=== PATIENT | male | born 1955 | race Caucasian/White ===

== ENCOUNTER 2016-09-11 09:14 | Inpatient (IN) | payer BC, OTHER ==
[~2016-09-11] VITALS: Ht 167.6 cm; Wt 75.7 kg
[2016-09-11] MEDS ORDERED: LOPERAMIDE HCL 2 MG CAPSULE PO PRN ×2 (12:15)
[2016-09-11] MEDS ORDERED: LORAZEPAM 1 MG TABLET PO PRN (12:15)
[2016-09-11] MEDS ORDERED: ONDANSETRON ODT 4 MG TAB.RAPDIS SL PRN (12:15)
[2016-09-11] MEDS ORDERED: ACETAMINOPHEN 325 MG TABLET PO PRN (12:15)
[2016-09-11] MEDS ORDERED: MAG HYDROX/AL HYDROX/SIMETH 30 ML LIQUID UDC PO PRN (12:15)
[2016-09-11] MEDS ORDERED: CLONIDINE HCL 0.1 MG TABLET PO PRN (12:15)
[2016-09-11] MEDS ORDERED: MAGNESIUM HYDROXIDE 30 ML LIQUID UDC PO PRN (12:15)
[2016-09-11] MEDS ORDERED: DICYCLOMINE HCL 20 MG TABLET PO PRN (12:15)
[2016-09-11] MEDS ORDERED: LORAZEPAM 2 MG/1 ML VIAL IM PRN (12:15)
[2016-09-11] MEDS ORDERED: MIRALAX 17 GM POWD.PACK PO PRN (12:15)
[2016-09-11] MEDS ORDERED: THIAMINE HCL 200 MG/2 ML VIAL IM ONE (12:15)
[2016-09-11] MEDS ORDERED: METO-306 PO (12:18)
[2016-09-11 12:30] VITALS: BP 135/93
--- NOTE | 2016-09-11 12:40 | NUR ---
ADMISSION NOTE VS: BP: 135/93 HR: 68 SPO2: 96% TEMP 98.5 PAIN 0/10 HEIGHT: 5'6" WEIGHT 167 LBS ALLERGIES: PENICILLIN PT IS A 61 YO MALE ADMITTED TO [facility] ON 09/11/2016 AT 1230 PM. PT IS UNDER THE CARE OF DR. DURHAM FOR ETOH DEPENDENCE. PT DENIES SUICIDAL AND HOMICIDAL IDEATION AT THIS TIME. PT DENIES BEING HOSPITALIZED IN THE LAST 30 DAYS. PT DENIES CHEST PAIN AND SOB. PT DENIES SEIZURE HISTORY. PT REPORTS OCCASIONALLY SMOKING MARIJUANA ABOUT 1 PIPE LOAD THIS MORNING AROUND 1100. UPON ASSESSMENT PATIENT SKIN IS INTACT. PT REPORTS CIRRHOSIS OF LIVER AND HTN AND IS A POOR HISTORIAN REGARDING HIS MEDIAL HISTORY. PT DOESNT KNOW WHY HE USES INHALERS AND STATES HE DOES NOT HAVE COPD OR ASTHMA. PT IS AOX4 AND ABLE TO ANSWER OTHER QUESTIONS FOR ADMISSION PROCESS. CIWA 6 UPON ADMISSION. PT IS FULL CODE. VS WNL AND REGULAR DIET. PT STATES HIS PCP IS DR. CLAY IN [place], [place]. BREATHING IS EVEN AND UNLABORED, SPO2 IS 96% ON RA. PT HAS STEADY GAIT AND AMBULATES WITH NO DIFFICULTY. PT STATES HIS BOWEL PATTERN IS REGULAR. PT HAS BEEN TO DETOX 22 TIMES WITH LAST TIME 6 MONTHS AGO. PT REPORTS LIVING WITH FAMILY.HX DEPRESSION AND BIPOLAR. PT STATES HE IS WILLING TO GET PNA VACCINE. ALL NEEDS HAVE BEEN MET. PT HAS BEEN ORIENTED TO UNIT AND STAFF. ALL SAFETY MEASURES IN PLACE PER HOSPITAL POLICY. BED IN LOWEST POSITION AND SIDE RAILS UP X2, CALL LIGHT WITHIN REACH. WILL CONTINUE TO MONITOR. SUBSTANCE ABUSE: ETOH-6 MONTHS IN THIS PATTERN WITH 30 YEAR HX. LAST USED 09/11/16 AT 1100. Addendum: 09/11/16 at 1718 by RODY CROWE RN PT STATES HE DRINKS ABOUT 5-10 BEERS DAILY. LAST DRINK 1 BEER THIS AM.
[2016-09-11] MEDS ORDERED: BETA15CR5 TP (12:44)
[2016-09-11] MEDS ORDERED: FEXO-25 PO (12:44)
[2016-09-11] MEDS ORDERED: CHOL10005 PO (12:44)
[2016-09-11] MEDS ORDERED: FURO40TA5 PO (12:44)
[2016-09-11] MEDS ORDERED: TIOT18CA4 IH (12:44)
[2016-09-11] MEDS ORDERED: ALBU8.5H2 INH (12:44)
[2016-09-11] MEDS ORDERED: BUDE10.2 INH (12:44)
[2016-09-11] MEDS ORDERED: xeralto PO (12:44)
[2016-09-11] MEDS ORDERED: MONT10TA25 PO (12:44)
[2016-09-11] MEDS ORDERED: LAMO200T PO (12:44)
[2016-09-11] MEDS ORDERED: HYDR-3024 PO (12:44)
[2016-09-11] MEDS ORDERED: AZEL23SP BNOSTRILS (12:44)
[2016-09-11] MEDS ORDERED: ATOR20TA PO (12:44)
[2016-09-11] MEDS ORDERED: DOXY150T PO (12:44)
[2016-09-11] MEDS ORDERED: NALT50TA PO (12:44)
[2016-09-11] MEDS ORDERED: SPIR50TA3 PO (12:44)
[2016-09-11] MEDS ORDERED: FLUO30CR11 TP (12:44)
[2016-09-11 12:47] LABS: *AMPHETAMINE, URINE NEGATIVE (NEGATIVE); *BARBITURATE, URINE NEGATIVE (NEGATIVE); *CANNABINOID, URINE NEGATIVE (NEGATIVE); *COCCAINE, URINE NEGATIVE (NEGATIVE); *OPIATE, URINE NEGATIVE (NEGATIVE); *PHENCYCLIDINE SCREEN,URINE NEGATIVE (NEGATIVE)
[2016-09-11] MEDS: LORAZEPAM 1 MG TABLET PO PRN ×2 (13:13→21:13)
[2016-09-11] MEDS: FOLIC ACID 1 MG TABLET PO SCH (13:13)
[2016-09-11] MEDS: THIAMINE HCL 100 MG TABLET PO SCH (13:13)
[2016-09-11] MEDS: MULTIVITAMINS,THERAPEUTIC TABLET PO SCH (13:14)
[2016-09-11] MEDS ORDERED: BETAMET DP 0.05% AUGM CR 15 GM CREAM.GM. TP PRN (13:15)
[2016-09-11] MEDS ORDERED: MONTELUKAST SODIUM 10 MG TABLET PO PRN (13:15)
[2016-09-11] MEDS ORDERED: ALBUTEROL SULFATE 8 GM HFA.AER.AD INH PRN (13:15)
--- NOTE | 2016-09-11 13:30 | NUR ---
ATIVAN 1 MG GIVEN. CIWA 6. PT REPORTS ANXIETY AND RESTLESSNESS.
--- NOTE | 2016-09-11 14:15 | NUR ---
PRN MEDS EFFECTIVE PT SLEEPING IN BED WITH BED IN LOWEST POSITION AND CALL PRICE IN REACH. RR EVEN AND UNLABORED. WILL CONTINUE TO MONITOR
[2016-09-11 14:27] LABS: BASOPHILS # (AUTO) 0.1 K/uL (0.0-0.2); BASOPHILS % (AUTO) 1.2 % (0.0-2.0); EOSINOPHILS # (AUTO) 0.2 K/uL (0.0-0.7); HEMATOCRIT 42.9 % (40.0-50.0); HEMOGLOBIN 14.5 g/dL (14.0-18.0); LYMPHOCYTES # (AUTO) 1.4 K/uL (0.8-4.8); LYMPHOCYTES % (AUTO) 21.5 % (20.5-51.5); MEAN CORPUSCULAR HGB CONC 34 g/dL (32.0-37.0); MEAN CORPUSCULAR VOLUME 97.6 fL (82.0-92.0); MONOCYTES # (AUTO) 0.6 K/uL (0.1-1.30); MONOCYTES % (AUTO) 8.8 % (0.0-11.0); NEUTROPHILS # (AUTO) 4.1 K/uL (1.8-8.9); NEUTROPHILS % (AUTO) 65.5 % (38.5-71.5); PLATELET COUNT (AUTO) 166 K/uL (150-450); RED BLOOD CELL COUNT(AUTO) 4.39 MIL/uL (4.70-6.10); RED CELL DISTRIBUTION WIDTH 15.2 % (11.5-14.5); WHITE BLOOD COUNT (AUTO) 6.4 K/uL (4.0-11.2)
[2016-09-11 14:41] LABS: ALBUMIN 2.7 g/dL (3.4-5.0); BILIRUBIN,TOTAL 0.6 mg/dL (0.2-1.0); CALCIUM 8.3 mg/dL (8.5-10.1); MAGNESIUM 1.4 mg/dL (1.8-2.4); POTASSIUM 3.9 mmol/L (3.5-5.1); TOTAL PROTEIN, SERUM 6.1 g/dL (6.4-8.2)
[2016-09-11 14:54] LABS: HIV-1 p24 ANTIGEN NON REACTIVE (NONREACTIVE); HIV-1/2 ANTIBODY NON REACTIVE (NONREACTIVE); THYROID STIMULATING HORMONE 0.917 mIU/mL (0.358-3.740)
[2016-09-11 16:00] VITALS: BP 111/81
[2016-09-11] MEDS ORDERED: FEXOFENADINE HCL 180 MG TABLET PO PRN (16:30)
[2016-09-11] MEDS ORDERED: ALBUTEROL SULFATE 2.5 MG/3 ML NEBU NEB PRN (16:45)
[2016-09-11] MEDS ORDERED: IPRATROPIUM BROMIDE 0.5 MG/2.5 ML NEBU NEB PRN (16:45)
--- NOTE | 2016-09-11 16:55 | NUR ---
CIWA DEFERRED. PT SLEEPING WITH BED IN LOWEST POSITION. CALL PRICE IN REACH. RESPIRATIONS EVEN AND UNLABORED.WILL CONTINUE MONITORING
[2016-09-11] MEDS ORDERED: PATIENT MAY USE OWN MED- MD OK INH SCH (17:00)
[2016-09-11] MEDS: GABAPENTIN 300 MG CAPSULE PO SCH (18:10)
[2016-09-11] MEDS: RIVAROXABAN 10 MG TABLET PO SCH (18:10)
[2016-09-11] MEDS: METOPROLOL TARTRATE 50 MG TABLET PO SCH (18:10)
[2016-09-11] MEDS ORDERED: MAGNESIUM OXIDE 400 MG TABLET PO ONE (18:30)
--- NOTE | 2016-09-11 18:44 | NUR ---
END OF SHIFT PT ADMITTED THIS AFTERNOON. PT HAD EKG DONE TODAY THAT SHOWED AFIB WITH RVR. PT WAS ASYMPTOMATIC. TELEPHONE ORDER FROM DR. SMITH FOR METOPROLOL TARTRATE 50 MG Q6H. PT BEEN IN BED SINCE PRN 1 MG ATIVAN GIVEN FOR RESTLESSNESS ANXIETY R/T ETOH W/D AND CIWA 6. ONE TIME ORDER OF 800MG MAG ORDERED AND GIVEN FOR HYPOMAGNESIUM. ENCOURAGED INCREASED FLUIDS. LAST CIWA 3.PT STILL SLEEPING WITH BED LOCKED AND IN LOWEST POSITION. CALL PRICE IN REACH. RR EVEN AND UNLABORED. WILL ENDORSE TO MACHINIST/MACHINE BUILDER NURSE.
--- NOTE | 2016-09-11 19:50 | NUR ---
START OF SHIFT Received report from day shift nurse. Pt is lying in bed resting. He is a 61 yo male admitted to [facility] today for ETOH dependence. He is A&O x4 and ambulatory. Allergies to PCN's, full code status, and on a 2 gm sodium diet. He has a PMH of HTN, cirrhosis, a-fib, depression, and bipolar. SCD's ordered for VTE score of 2. On admission he admitted to drinking 5-10 beers/day for the past 6 months. He is ordered a 5 day Ativan taper to start tomorrow. PRN's available for the management of withdrawal symptoms. He has sweating and hand tremors. He denies dizziness or SOB. Pt educated regarding use of the SCD's. PRN's available for the management of withdrawal. Fall and seizure precautions in place. Bed is down with call light in reach.
[2016-09-11 20:00] VITALS: BP 100/67
[2016-09-11] MEDS: ATORVASTATIN 20 MG TABLET PO SCH (21:13)
[2016-09-11] MEDS: CHOLECALCIFEROL 1,000 UNIT TABLET PO SCH (21:13)
[2016-09-11] MEDS: hydrOXYzine HCL 10 MG TABLET PO SCH (21:13)
--- NOTE | 2016-09-11 21:15 | NUR ---
PRN Ativan administration Pt is noted to be sweating and with hand tremors. He reports that he "feels uneasy". CIWA score 7. PRN Ativan administered
--- NOTE | 2016-09-11 22:15 | NUR ---
PRN Ativan reassessment PRN Ativan effective. Pt is lying comfortably in bed with eyes closed. Respirations even and unlabored. Bed is down with call light in reach.
[2016-09-12] VITALS: BP 116/96
[2016-09-12] MEDS: METOPROLOL TARTRATE 50 MG TABLET PO SCH ×4 (00:24→17:06)
[2016-09-12 04:00] VITALS: BP 125/92
--- NOTE | 2016-09-12 04:05 | NUR ---
Nursing Note Patient yelled out from his room and upon checking on the patient he was walking out of his restroom. He reported that he slipped on liquid on the bathroom floor. He states that he scraped his right arm against the bathroom emergency call light and that he did not fall to the ground. He denies dizziness or SOB. He obtained two bruises on the right upper arm with a small abrasion in the middle of one bruise. Pt states, "I'm fine". He is A&O x4. He denies pain or any other injuries. Cleansed site with normal saline, pat dry, and covered with a large band aid. Ensured patient's environment is safe. Addendum: 09/12/16 at 0745 by MANJIT CAMARA RN Photo of right arm taken and placed in chart.
[2016-09-12] MEDS: LORAZEPAM 1 MG TABLET PO PRN (04:08)
--- NOTE | 2016-09-12 04:09 | NUR ---
PRN Ativan administration Pt reports that he feels restless and anxious. He is noted with flushed moist skin and tremors. CIWA score is 6. PRN Ativan administered.
--- NOTE | 2016-09-12 07:25 | NUR ---
END OF SHIFT Report provided to day shift nurse. Pt is lying in bed resting. He is a 61 yo male admitted to [facility] today for ETOH dependence. He is A&O x4 and ambulatory. Allergies to PCN's, full code status, and on a 2 gm sodium diet. He has a PMH of HTN, cirrhosis, a-fib, depression, and bipolar. SCD's ordered for VTE score of 2. ECG performed yesterday. On admission he admitted to drinking 5-10 beers/day for the past 6 months. Ativan taper is scheduled to start today. PRN Ativan x2 administered. Pt slipped in the bathroom and scraped his right arm against the call light. Bruising and small abrasion was covered with a band aid. Last CIWA was 6. He drank 540 mL and slept for 8 hours. Fall and seizure precautions in place. Bed is down with call light in reach.
--- NOTE | 2016-09-12 07:30 | NUR ---
START OF SHIFT Received report from third shift lieutenant nurse. 61 year old male patient admitted on 09/11/16 for ETOH withdrawals. Pt reports drinking 5-10 beers daily for the past 6 months. Pt is A/O x4, allergies to PCN and follows a 2g sodium diet. Hx pf depression, HTN, bipolar, cirrhosis, and A.fib. Pt is on fall and seizure precautions. Pt has been placed on a 5 day Ativan taper and is tolerating well. Most recent CIWA is 6, PRN 1mg Ativan administered at night x2. SCD are in room, pt education provided. During night pt reports slipping, denies falling, pt noted to have scrape and bruising noted on right upper arm, photos taken and in chart. Pt slept for 8 hour. V/S remain WNL. Safety precautions are in place, will continue to monitor.
[2016-09-12 08:16] VITALS: BP 120/88
[2016-09-12] MEDS: LORAZEPAM 1 MG TABLET PO SCH ×4 (08:18→20:54)
[2016-09-12] MEDS: FOLIC ACID 1 MG TABLET PO SCH (08:19)
[2016-09-12] MEDS: LAMOTRIGINE 200 MG TABLET PO SCH (08:19)
[2016-09-12] MEDS: DOCUSATE SODIUM 250 MG CAPSULE PO SCH (08:19)
[2016-09-12] MEDS: SPIRONOLACTONE 50 MG TABLET PO SCH (08:19)
[2016-09-12] MEDS: MULTIVITAMINS,THERAPEUTIC TABLET PO SCH (08:19)
[2016-09-12] MEDS: THIAMINE HCL 100 MG TABLET PO SCH (08:19)
[2016-09-12] MEDS: GABAPENTIN 300 MG CAPSULE PO SCH ×2 (08:19→17:01)
[2016-09-12] MEDS: FUROSEMIDE 40 MG TABLET PO SCH (08:19)
--- NOTE | 2016-09-12 08:20 | NUR ---
PPD ADMINISTERED TB administered on LFA, to be read on 09/14/16.
[2016-09-12] MEDS ORDERED: PATIENT MAY USE OWN MED- MD OK NS SCH (09:00)
[2016-09-12] MEDS ORDERED: PATIENT MAY USE OWN MED- MD OK PO SCH ×2 (09:00)
[2016-09-12] MEDS ORDERED: hydrOXYzine HCL 10 MG TABLET PO SCH (09:00)
[2016-09-12] MEDS ORDERED: 5 DAY TAPER OF LORAZEPAM -SERENITY PROTOCOL PO PRN (09:00)
[2016-09-12] MEDS ORDERED: PATIENT MAY USE OWN MED- MD OK INH SCH (09:00)
[2016-09-12] MEDS ORDERED: METOPROLOL SUCCINATE XL 100 MG TAB.SR.24H PO SCH (09:00)
[2016-09-12] MEDS ORDERED: FEXOFENADINE HCL 60 MG TABLET PO SCH (09:00)
[2016-09-12] MEDS ORDERED: TUBERCULIN,PURIF.PROT.DERIV. 5 TU/0.1 ML TEST ID ONE (09:00)
[2016-09-12 09:54] LABS: CALCIUM 8.5 mg/dL (8.5-10.1); CREATININE 1.1 mg/dL (0.6-1.3); MAGNESIUM 1.6 mg/dL (1.8-2.4); POTASSIUM 4.2 mmol/L (3.5-5.1)
[2016-09-12 12:45] VITALS: BP 127/91
[2016-09-12 16:58] VITALS: BP 130/85
[2016-09-12] MEDS: RIVAROXABAN 10 MG TABLET PO SCH (17:05)
--- NOTE | 2016-09-12 18:42 | NUR ---
END OF SHIFT NOTE 61 year old male patient admitted on 09/11/16 for ETOH withdrawals. Pt is A/O x4, allergies to PCN and follows a 2g sodium diet. Hx Of depression, HTN, bipolar, cirrhosis, and A.fib. Denies any chest pain, palpitations or discomfort. Pending echocardiogram ordered. Pt is on fall and seizure precautions. Pt on 5 day Ativan taper and is tolerating well. Most recent CIWA is 6, no PRN given or needed. TB skin test administered to be read on 09/14/16. notified about patient slipping on facility environmental technician and pt noted with scrape and bruising on right upper arm, photos taken and in chart. Patient has adequate caloric intake and ambulates with steady gait. V/S remain WNL. Safety precautions are in place. cigarette tester nurse will continue to monitor.
--- NOTE | 2016-09-12 19:50 | NUR ---
START OF SHIFT Received report from day shift nurse. Pt is lying in bed resting. He is a 61 yo male admitted to [facility] today for ETOH dependence. He is A&O x4 and ambulatory. Allergies to PCN's, full code status, and on a 2 gm sodium diet. He has a PMH of HTN, cirrhosis, a-fib, depression, and bipolar. SCD's ordered for VTE score of 2. He has an Echocardiogram ordered. On admission he admitted to drinking 5-10 beers/day for the past 6 months. 5 day Ativan taper started today. He reports anxiety and is noted with flushing. Ativan is working well to manage withdrawal symptoms. Fall and seizure precautions in place. Bed is down with call light in reach.
[2016-09-12 20:00] VITALS: BP 130/95
[2016-09-12] MEDS ORDERED: MAGNESIUM OXIDE 400 MG TABLET PO ONE (20:00)
[2016-09-12] MEDS: hydrOXYzine HCL 10 MG TABLET PO SCH (20:53)
[2016-09-12] MEDS: ATORVASTATIN 20 MG TABLET PO SCH (20:54)
[2016-09-12] MEDS: CHOLECALCIFEROL 1,000 UNIT TABLET PO SCH (20:54)
[2016-09-13] VITALS: BP 122/74
--- NOTE | 2016-09-13 00:37 | NUR ---
Nursing Note Patient walked out of his room fully dressed with his clothes in a bag. He stated "I'm ready to go". When patient was asked where he is going he reported that he thought someone he knew was picking him up. Pt was easily redirected back to his room where he got back into bed. He reported, "maybe I had a dream". Ensured patients surroundings are safe. Bed is down with call light in reach.
[2016-09-13] MEDS: METOPROLOL TARTRATE 50 MG TABLET PO SCH ×5 (00:42→23:51)
[2016-09-13] MEDS: diphenhydrAMINE 50 MG CAPSULE PO PRN ×2 (00:43→23:59)
--- NOTE | 2016-09-13 00:44 | NUR ---
PRN Benadryl administration Pt reports inability to sleep. PRN Benadryl administered.
--- NOTE | 2016-09-13 01:45 | NUR ---
PRN Benadryl reassessment PRN Benadryl effective. Pt is lying in bed resting with eyes closed. Respirations even and unlabored. Bed is down with call light in reach.
[2016-09-13 06:30] VITALS: BP 122/83
--- NOTE | 2016-09-13 06:30 | NUR ---
1:1 ordered Pt placed on a 1:1 for unsteady gait and for confusion upon waking up. Patient is easily redirected and cooperative.
--- NOTE | 2016-09-13 07:05 | NUR ---
Start of Shift Endorsement received from nightshift nurse. Pt is a 61 y/o male admitted for alcohol dependence. Pt has been placed on a 5 day Ativan taper. Pt is moderately withdrawing at this time AEB CIWA 6. Pt received PRN Benadryl and reports sleeping 6 hours. PT has been placed on 1:1 due to unsteady gate until farther evaluation. VS WNL, 2g Sodium diet. PT appears to be sleeping at this time, eyes closed, breathing even and unlabored, responsive to name and touch. Remains compliant with medication and diet regimen. All needs have been met, All safety measures in place per hospital policy. Bed in lowest position, side rails up x2, call-light within reach. Will continue to monitor
--- NOTE | 2016-09-13 07:25 | NUR ---
END OF SHIFT Report provided to day shift nurse. Pt is lying in bed resting. He is a 61 yo male admitted to [facility] on 09/11/16 for ETOH dependence. He is A&O x4 and ambulatory. Allergies to PCN's, full code status, and on a 2 gm sodium diet. He has a PMH of HTN, cirrhosis, a-fib, depression, and bipolar. SCD's in place for VTE score of 2. He has an Echocardiogram ordered. On admission he admitted to drinking 5-10 beers/day for the past 6 months. 5 day Ativan taper started 09/12. He has a pending Ecohcardiogram. He has bruising to the right upper arm. Mg supplemented per orders. PRN Benadryl administered for sleep. Last CIWA was 6. He drank 710mL and slept for 5 hours. Pt placed on a 1:1 for unsteady gait and mild confusion upon waking up for midnight vitals. He is easily redirected. Fall and seizure precautions in place. Bed is down with call light in reach.
[2016-09-13 08:00] VITALS: BP_SYST 128; BP_SYST 129; BP_SYST 130; BP_DIAS 84; BP_DIAS 86; BP_DIAS 89
[2016-09-13 08:06] LABS: CALCIUM 8.6 mg/dL (8.5-10.1); CREATININE 1.2 mg/dL (0.6-1.3); MAGNESIUM 1.3 mg/dL (1.8-2.4)
[2016-09-13] MEDS ORDERED: PNEUMOCOCCAL 23-VAL P-SAC VAC 0.5 ML VIAL IM ONE (09:00)
[2016-09-13] MEDS: FUROSEMIDE 40 MG TABLET PO SCH (09:36)
[2016-09-13] MEDS: FOLIC ACID 1 MG TABLET PO SCH (09:36)
[2016-09-13] MEDS: LAMOTRIGINE 200 MG TABLET PO SCH (09:36)
[2016-09-13] MEDS: GABAPENTIN 300 MG CAPSULE PO SCH ×2 (09:36→17:27)
[2016-09-13] MEDS: MULTIVITAMINS,THERAPEUTIC TABLET PO SCH (09:36)
[2016-09-13] MEDS: SPIRONOLACTONE 50 MG TABLET PO SCH (09:36)
[2016-09-13] MEDS: LORAZEPAM 1 MG TABLET PO SCH ×3 (09:36→20:26)
[2016-09-13] MEDS: THIAMINE HCL 100 MG TABLET PO SCH (09:36)
[2016-09-13] MEDS: DOCUSATE SODIUM 250 MG CAPSULE PO SCH (09:36)
[2016-09-13 12:00] VITALS: BP 128/86
[2016-09-13 12:08] LABS: HCV AB 0.2 s/co ratio (0.0-0.9); HEPATITIS B CORE AB, IgM Negative (Negative); HEPATITIS B SURFACE AG Negative (Negative)
[2016-09-13] MEDS ORDERED: MAGNESIUM OXIDE 400 MG TABLET PO ONE ×3 (13:00→21:00)
[2016-09-13 16:00] VITALS: BP 136/89
[2016-09-13] MEDS ORDERED: LORAZEPAM 1 MG TABLET PO ONE (17:00)
[2016-09-13] MEDS: RIVAROXABAN 10 MG TABLET PO SCH (17:28)
[2016-09-13 18:24] LABS: CALCIUM 8.6 mg/dL (8.5-10.1); CREATININE 1.3 mg/dL (0.6-1.3); MAGNESIUM 1.4 mg/dL (1.8-2.4); POTASSIUM 4.1 mmol/L (3.5-5.1)
--- NOTE | 2016-09-13 19:37 | NUR ---
End of shift Endorsement given to nightshift nurse. Pt is a 61 y/o male admitted for alcohol dependence. Pt has been placed on a 5 day Ativan taper. Pt is moderately withdrawing at this time AEB CIWA 11. Pt has not received any PRN medications. PT has been placed on 1:1 due to unsteady gate and auditory and visual hallucinations.. VS WNL, 2g Sodium diet. intake: 2500ml, Void x5, BM x2. Remains compliant with medication and diet regimen. All needs have been met, All safety measures in place per hospital policy. Bed in lowest position, side rails up x2, call-light within reach. Will continue to monitor
[2016-09-13 20:00] VITALS: BP 123/84
--- NOTE | 2016-09-13 20:00 | NUR ---
2000 Patient received resting with eyes closed and quiet, even, unlabored respirations noted at 16. Patient color is caraballo-pink and his skin is warm, slightly moist and intact. Patient aroused for nurse assess and vital signs. Patient is oriented to person, place and his situation. Patient reoriented to day, date and time. Patient's speech is somewhat drowsy and a bit garbled in clarity, however he does answer nurse's assess questions appropriately for the most part, while giving fairly good eye contact. Lungs are clear bilaterally and active bowel sounds are noted x 4 abdominal Quads, per auscultation. Patient denies any pain and he voices no complaints at this time. Vital signs are: 97.7-77-16 123/84, CIWA 7. Patient moves all his extremities fully WNL, though a bit stiffly and slowly. Leg venous pump on bed but pump/leg sleeves not in use on patient's legs per patient's strong choice at this time. 1 to 1 [facility] staff at patient's bedside for patient safety. Patient was admitted on 09/11/16 for Alcohol withdrawal and he is currently on a 5-Day Ativan medication taper, which he has apparently been tolerating well. Fall/Seizure precautions continue. Bed is locked and in lowest position, bed rails are up X 2 and call light at patient's side.
[2016-09-13] MEDS: hydrOXYzine HCL 10 MG TABLET PO SCH (20:25)
[2016-09-13] MEDS: ATORVASTATIN 20 MG TABLET PO SCH (20:26)
[2016-09-13] MEDS: CHOLECALCIFEROL 1,000 UNIT TABLET PO SCH (20:26)
[2016-09-13] MEDS ORDERED: LACTULOSE 20 G/30 ML LIQUID UDC PO ONE (21:00)
--- NOTE | 2016-09-13 23:59 | NUR ---
PRN MEDICATION: Prn Benadryl 50 mg p.o. given for sleep. Patient will now be NPO in prep for U/S of abdomen in AM per D.O.
[2016-09-14] VITALS: BP 122/88
[2016-09-14] MEDS: HYDROXYZINE PAMOATE 25 MG CAPSULE PO PRN ×2 (02:13→11:53)
--- NOTE | 2016-09-14 02:13 | NUR ---
Patient is awake, confused, partially dressed and standing up slightly wobbly at his bedside, stating somewhat loudly " I'm going home on the motorcycle. This place is like prison with entertainment". Patient oriented to person, place and his situation. Patient reoriented to day, date, time and his immediate surroundings, then he was redirected and assisted back into his bed. Patient c/o " anxiety" and asks nurse, " Can I have something for that?" Prn Vistaril 50 mg p.o. given with sips water. Patient states, " Okay, they said I could leave in the morning". 1 to 1 [facility] staff continues at patient's bedside. Bed rails are up X 2. Patient made comfortable with extra blanket, robe and repositioning.
--- NOTE | 2016-09-14 03:13 | NUR ---
REASSESSMENT PRN MEDICATION: Patient is quiet with eyes closed. Respirations even, quiet, unlabored at 14.
--- NOTE | 2016-09-14 04:00 | NUR ---
Patient is loud, confused and anxious at this time, and he refused V/S to be done. CIWA 9
[2016-09-14] MEDS ORDERED: LORAZEPAM 1 MG TABLET PO ONE (04:45)
--- NOTE | 2016-09-14 04:45 | NUR ---
Pt Assessment and MD Communication: Pt noted with increased agitation and anxiety. Pt was verbally aggressive with primary nurse. Pt AOx2, pt able to state own name and current date but unable to identify place. Pt remains on 1:1 for unsteady gait and safety. Pt stated that "he is in a little room in a restaurant". Pt observed with increased restlessness due to wanting to leave facility. Reminded pt that he is in the hospital for detox. Pt started talking about his current situation. Allowed pt to verbalize own feelings. Support and encouragement given. Pt stated he just wanted to calm down and go to sleep. MD made aware of situation with new order for 2mg Ativan PO ONE TIME NOW. At the time of medication administration, pt was assessed and noted to be sleeping. 2mg Ativan PO ONE TIME not given. MD made aware.
[2016-09-14] MEDS ORDERED: LORAZEPAM 1 MG TABLET ONE (04:47)
--- NOTE | 2016-09-14 06:30 | NUR ---
0630 Patient slept a total of 4 hours and he had 5 total voids ( continent and incontinent), and no stools. Total intake before midnight was 532 ml p.o. Prn medications given noted separately per floor protocol. V/SS, afebrile, CIWA 7-9. Patient is overall confused and having visual hallucinations most of the shift, though he does have a few episodes of mental and spoken clarity. Efforts to redirect or reorientate patient, frequently escalates patient's negative behavior, causing patient is shout obscenities and act out. Patient is presently resting with his eyes closed and respirations regular and unlabored at 14. 1 to 1 staff continues at bedside.
--- NOTE | 2016-09-14 07:35 | NUR ---
START OF SHIFT Received report from delphi programmer nurse. Pt is lying in bed resting. He is a 61 yo male admitted to [facility] on 09/11 for ETOH dependence. Allergic to PCN, is on a 2 gram sodium diet and is full code status. He has episodes of confusion and an unsteady gait. 1:[address] for safety. He has a PMH of A-fib, HTN, Chrrhosis, deression, and bipolar. On admission he admitted to drinking 5-10 beers per day. Pt is ordered a 5 day Ativan taper. He is relaxed in bed, easily arousable, and oriented x3. Respirations even and unlabored. Fall and seizure precautions in place. Bed is down with call light in reach.
[2016-09-14 08:00] VITALS: BP 130/89
[2016-09-14] MEDS: FOLIC ACID 1 MG TABLET PO SCH (08:46)
[2016-09-14] MEDS: SPIRONOLACTONE 50 MG TABLET PO SCH (08:46)
[2016-09-14] MEDS: FUROSEMIDE 40 MG TABLET PO SCH (08:46)
[2016-09-14] MEDS: DOCUSATE SODIUM 250 MG CAPSULE PO SCH (08:46)
[2016-09-14] MEDS: LORAZEPAM 1 MG TABLET PO SCH ×4 (08:46→21:06)
[2016-09-14] MEDS: LAMOTRIGINE 200 MG TABLET PO SCH (08:46)
[2016-09-14] MEDS: THIAMINE HCL 100 MG TABLET PO SCH (08:47)
[2016-09-14] MEDS: MULTIVITAMINS,THERAPEUTIC TABLET PO SCH (08:47)
[2016-09-14] MEDS: GABAPENTIN 300 MG CAPSULE PO SCH ×2 (08:47→16:24)
[2016-09-14] MEDS: METOPROLOL TARTRATE 50 MG TABLET PO SCH ×2 (08:47→16:24)
[2016-09-14 09:53] LABS: FOLIC ACID 18.9 NG/ML (8.6-58.9)
[2016-09-14 10:01] LABS: ALBUMIN 2.5 g/dL (3.4-5.0); BILIRUBIN,DIRECT 0.2 mg/dL (0.0-0.2); BILIRUBIN,TOTAL 0.9 mg/dL (0.2-1.0); CREATININE 1.1 mg/dL (0.6-1.3); MAGNESIUM 1.4 mg/dL (1.8-2.4); PHOSPHOROUS 4.2 mg/dL (2.5-4.9); POTASSIUM 4.3 mmol/L (3.5-5.1); TOTAL PROTEIN, SERUM 5.7 g/dL (6.4-8.2)
--- NOTE | 2016-09-14 11:58 | NUR ---
PRN Vistaril administration Pt is anxious and becoming agitated. He is verbalizing that his friends are here to pick him up when they are not. Redirected patient. 1:[address] for safety[address] PRN Vistaril administered. Addendum: 09/14/16 at 1201 by MANJIT CAMARA RN HYACINTHWA score is 7
[2016-09-14 12:00] VITALS: BP 122/90
[2016-09-14] MEDS ORDERED: LACTULOSE 20 G/30 ML LIQUID UDC PO ONE (13:00)
[2016-09-14] MEDS ORDERED: MAGNESIUM OXIDE 400 MG TABLET PO ONE ×2 (13:00→21:00)
--- NOTE | 2016-09-14 13:00 | NUR ---
PRN Vistaril reassessment PRN Vistaril effective. Pt is lying in bed resting with eyes closed. 1:[address] for safety.
[2016-09-14 16:00] VITALS: BP 141/92
--- NOTE | 2016-09-14 17:30 | NUR ---
Communication Pt walked out of his room with BHT by his side at 1600. He was becoming agitated and speaking about his truck. He is noted with slurred speech. Attempted to redirect patient. He requested to make a phone call and agitation increased. He began walking down the [address]. He stopped, turned quickly, and lost his balance. BHT assisted the patient to the floor. No injuries sustained. Pt denied pain. Vital signs 141/92, HR 84, RR 20, O2 sat 96%, T 98.0. He was taken to make a phone call and was unable to recall the phone number of the person he was trying to reach. Pt returned to his room to lie in bed.
[2016-09-14] MEDS: RIVAROXABAN 10 MG TABLET PO SCH (18:19)
[2016-09-14 20:00] VITALS: BP 109/75
--- NOTE | 2016-09-14 20:00 | NUR ---
START OF SHIFT Received 61 year old male patient admitted on 09/11/16 for ETOH dependency. Pt is full code with allergy to PCN and on 2 gram sodium diet. He reports a PMHx of depression, hypertension, bipolar, cirrhosis and AFIB. He reports using ETOH (5-10 beers) daily for 6 months at this rate but 30 year history. Last dose was 1 beer on 09/11/16. He is on 5 day Ativan tapert started on 09/12/16 and tolerating well. Pt is on 1:1 for safety. Per endorsement, he received PRN vistaril. Pt is alert and oriented x3, but experiences moments of confusion, he is able to be redirected. Breathing is even and unlabored, safety measures in place. Will continue to monitor.
--- NOTE | 2016-09-14 20:20 | NUR ---
END OF SHIFT Received report from clinical informatics director nurse. Pt is lying in bed resting. He is a 61 yo male admitted to [facility] on 09/11 for ETOH dependence. Allergic to PCN, is on a 2 gram sodium diet and is full code status. He has episodes of confusion and an unsteady gait. 1:[address] for safety. He has a PMH of A-fib, HTN, Cirrhosis, depression, and bipolar. On admission he admitted to drinking 5-10 beers per day. Pt is ordered a 5 day Ativan taper. Pt has had periods of confusion and agitation during the day. Pt was assisted to the ground during the day after turning too fast and losing his balance in the hallway. No injuries sustained. MD aware. Last CIWA was 9. Fall and seizure precautions in place. Bed is down with call light in reach.
[2016-09-14] MEDS: ATORVASTATIN 20 MG TABLET PO SCH (21:06)
[2016-09-14] MEDS: CHOLECALCIFEROL 1,000 UNIT TABLET PO SCH (21:06)
[2016-09-14] MEDS: LACTULOSE 20 G/30 ML LIQUID UDC PO SCH (21:07)
[2016-09-14] MEDS: hydrOXYzine HCL 10 MG TABLET PO SCH (21:07)
[2016-09-14] MEDS: QUETIAPINE FUMARATE 25 MG TABLET PO PRN (23:29)
--- NOTE | 2016-09-14 23:29 | NUR ---
PRN SEROQUEL Pt noted to be agitated, restless and aggressive to staff. PRN Seroquel administered as ordered. Breathing even and unlabored, safety measures in place. Will continue to monitor effectiveness of medication.
--- NOTE | 2016-09-15 | NUR ---
VITALS Pt noted to be agitated, restless and confused. Pt refused 0000 vital signs. Breathing is even and unlabored, safety measures in place. Will continue to monitor. Addendum: 09/15/16 at 0208 by LINDA BOURGEOIS RN Amended: Links added.
--- NOTE | 2016-09-15 00:30 | NUR ---
PRN SEROQUEL REASSESSMENT PRN medication effective. No restlessness or agitation noted. Pt noted to be sleeping comfortably in bed with eyes closed. Respirations 16, breathing is even and unlabored. Pt safe with bed locked in lowest position, side rails up x2 and call light within reach. Will continue to monitor.
[2016-09-15] MEDS: HYDROXYZINE PAMOATE 25 MG CAPSULE PO PRN ×2 (03:51→22:35)
--- NOTE | 2016-09-15 03:51 | NUR ---
PRN TYLENOL/VISTARIL Pt complains of headache 3/10 and backache 5/10. Pt also reports anxiety. Noted to be restless in bed. PRN Tylenol and Vistaril administered as ordered. Breathing is even and unlabored, safety measures in place. Will continue to monitor effectiveness.
[2016-09-15 04:00] VITALS: BP 126/94
--- NOTE | 2016-09-15 04:51 | NUR ---
PRN TYLENOL/VISTARIL REASSESSMENT PRN medications effective. Pt lying in bed with no evidence of pain or anxiety noted. Pt eyes are closed and noted to be asleep. Respirations 16. Breathing is even and unlabored, safety measures in place. Will continue to monitor.
--- NOTE | 2016-09-15 07:13 | NUR ---
END OF SHIFT Pt remained stable during shift. Pt had episode of agitation, confusion, restlessness and aggression. He received PRN Seroquel, Tylenol and Vistaril. All PRN medications effective. Last CIWA: 5 @ 0400. He remains on 1:1 for safety. He slept a total of 4 hrs, Intake: 710mL Void:x2 BM:0 Breathing is even and unlabored, pt safe with bed locked in lowest position, side rails up x2 and call light within reach. Endorsed to oncoming nurse.
[2016-09-15 08:00] VITALS: BP 116/84
--- NOTE | 2016-09-15 08:00 | NUR ---
START OF SHIFT Pt 61 y/o male admitted for etoh dependence. Pt received in room with eyes closed resting, but easily arousable to name. Pt alert and oriented to name. Pt could not stated where he is. Pt observed rambling to self. Pt also observed repeatedly getting up and sitting down. Pt needed some redirection. Perrla. Skin warm and dry to touch. Respirations even and unlabored. Pt with sitter 1:1 for safety. It was reported that pt slept for 4 hours last night. Bed on lowest position with side rails x2 up for safety. Call light within reach. No distress noted at this time.
[2016-09-15 08:19] LABS: CALCIUM 8.7 mg/dL (8.5-10.1); MAGNESIUM 1.9 mg/dL (1.8-2.4); PHOSPHOROUS 4.8 mg/dL (2.5-4.9)
[2016-09-15 08:29] LABS: CREATININE 1.6 mg/dL (0.6-1.3)
[2016-09-15] MEDS ORDERED: FUROSEMIDE 40 MG TABLET PO SCH (09:00)
[2016-09-15] MEDS ORDERED: FUROSEMIDE 20 MG TABLET PO SCH (09:00)
[2016-09-15] MEDS: LAMOTRIGINE 200 MG TABLET PO SCH (09:43)
[2016-09-15] MEDS: SPIRONOLACTONE 50 MG TABLET PO SCH (09:44)
[2016-09-15] MEDS: METOPROLOL TARTRATE 50 MG TABLET PO SCH ×2 (09:44→17:00)
[2016-09-15] MEDS: QUETIAPINE FUMARATE 25 MG TABLET PO PRN ×2 (09:44→18:05)
[2016-09-15] MEDS: GABAPENTIN 300 MG CAPSULE PO SCH ×2 (09:44→17:00)
[2016-09-15] MEDS: FOLIC ACID 1 MG TABLET PO SCH (09:44)
[2016-09-15] MEDS: MULTIVITAMINS,THERAPEUTIC TABLET PO SCH (09:44)
[2016-09-15] MEDS: LORAZEPAM 1 MG TABLET PO SCH ×3 (09:44→20:34)
[2016-09-15] MEDS: LACTULOSE 20 G/30 ML LIQUID UDC PO SCH ×3 (09:44→20:33)
[2016-09-15] MEDS: DOCUSATE SODIUM 250 MG CAPSULE PO SCH (09:44)
--- NOTE | 2016-09-15 09:44 | NUR ---
PRN Pt observed rambling and talking to self in room. Pt oriented to name only. Pt stated he thinks he has appointment with a j2ee application developer this morning. Seroquel po prn per MD order given and tolerated well. Sitter remains with pt to monitor for safety.
[2016-09-15] MEDS ORDERED: IV NORMAL SALINE 500 ML IV ONE (10:00)
[2016-09-15] MEDS: THIAMINE HCL 100 MG TABLET PO SCH (10:02)
--- NOTE | 2016-09-15 10:44 | NUR ---
PRN EVAL Pt observed in room on bed with eyes closed resting, but easily arousable to name. Pt with sitter to monitor safety. No distress noted at this time.
--- NOTE | 2016-09-15 11:00 | NUR ---
IV Peripheral IV started on left hand 22g and tolerated well, and is infusing NS bolus, and is tolerating well, with no redness or infiltration noted.
[2016-09-15 12:00] VITALS: BP 100/73
[2016-09-15 16:00] VITALS: BP 88/57
[2016-09-15 18:00] VITALS: BP 102/65
[2016-09-15] MEDS: RIVAROXABAN 10 MG TABLET PO SCH (18:06)
--- NOTE | 2016-09-15 18:17 | NUR ---
PRN Pt with agitated episode, stating," my bike is right outside damnit. Get out of my way damnit! Get out!". Pt hard to redirect. Seroquel po prn per MD order given and tolerated well.
--- NOTE | 2016-09-15 18:25 | NUR ---
END OF SHIFT Pt 61 y/o male admitted for etoh dependence. Pt alert and oriented to name. Pt could not stated where he is. Pt observed rambling to self at times throughout the day. Pt also observed repeatedly getting up and sitting down with poor safety awareness. Pt with periods of agitation. Pt needed some redirection at times throughout the day. Perrla. Skin warm and dry to touch. Respirations even and unlabored. Pt with sitter 1:1 for safety. Pt observed in room throughout the day. Bed on lowest position with side rails x2 up for safety. Call light within reach. No distress noted at this time.
--- NOTE | 2016-09-15 19:15 | NUR ---
START OF SHIFT Received 61 year old male patient admitted on 09/11/16 for ETOH dependency. Pt is full code with allergy to PCN and on 2 gram sodium diet. He reports a PMHx of depression, hypertension, bipolar, cirrhosis and AFIB. He reports using ETOH (5-10 beers) daily for 6 months at this rate but 30 year history. Last dose was 1 beer on 09/11/16. He is on 5 day Ativan taper started on 09/12/16 and tolerating well. Pt is on 1:1 for safety. Per endorsement, he received PRN Seroquel x2 for increased agitation/hallucinations. He also had 22 gauge IV to the left hand and received NS 500mL bolus. Pt is alert and oriented x2. Breathing even and unlabored, safety measures in place. Will continue to monitor.
[2016-09-15 20:00] VITALS: BP 112/84
[2016-09-15] MEDS: CHOLECALCIFEROL 1,000 UNIT TABLET PO SCH (20:33)
[2016-09-15] MEDS: ATORVASTATIN 20 MG TABLET PO SCH (20:33)
--- NOTE | 2016-09-15 21:15 | NUR ---
NURSING NOTE Pt pulled out IV on left hand. Per retail client solutions analyst, pt verbalized that he pulled out IV because he was " eating an IV sandwich." Reoriented patient to person and place. Pressure dressing applied to area. Minimal bleeding noted. Will continue to monitor.
--- NOTE | 2016-09-15 22:35 | NUR ---
PRN VISTARIL Pt noted to be anxious and restless in bed. Unable to sit still. PRN Vistaril administered as ordered. Breathing even and unlabored, safety measures in place. Will continue to monitor effectiveness.
--- NOTE | 2016-09-15 23:35 | NUR ---
PRN VISTARIL REASSESSMENT PRN Vistaril ineffective. Pt still noted to be anxious and restless in room. BHT at bedside for safety. Breathing even and unlabored. Safety measures in place. Will continue to monitor.
[2016-09-16] VITALS: BP 128/85
[2016-09-16] MEDS: QUETIAPINE FUMARATE 25 MG TABLET PO PRN (00:10)
--- NOTE | 2016-09-16 00:10 | NUR ---
PRN SEROQUEL Pt noted to be agitated and aggressive with staff. Pt is restless, walking in and out of room. PRN Seroquel administered as ordered. Breathing even and unlabored, safety measures in place. Will continue to monitor effectiveness of medication.
--- NOTE | 2016-09-16 01:10 | NUR ---
PRN SEROQUEL REASSESSMENT PRN medication somewhat effective. Pt still noted to be restless, and observed to be walking in and out of room. Pt noted with decreased agitation and aggression. Will continue to monitor.
--- NOTE | 2016-09-16 02:11 | NUR ---
ONE TIME ATIVAN Pt noted to be agitated and restless, experiencing moments of confusion but able to be redirected. Pt observed to be walking in and out of room and pacing hallway. Dr. Nolan notified and received one time order for Ativan 2 mg x1. CIWA:15. Will continue to monitor effectiveness of medication.
[2016-09-16] MEDS ORDERED: LORAZEPAM 1 MG TABLET PO ONE (02:15)
--- NOTE | 2016-09-16 03:11 | NUR ---
ONE TIME ATIVAN REASSESSMENT Medication somewhat effective. Pt still awake, noted with decreased restlessness and agitation. Pt observed to be sitting in bed, appears drowsy. CIWA:11. BHT at bedside for safety. Will continue to monitor.
[2016-09-16 04:00] VITALS: BP 122/82
--- NOTE | 2016-09-16 06:08 | NUR ---
NURSING NOTE Pt had episode of incontinence while attempting to walk to the bathroom. Pt kept verbalizing "go away please, just go away." Pt assisted safely back to bed and reoriented to person, place and time. Pt lying in bed, breathing is even and unlabored, respirations 16. Safety measures in place. Will continue to monitor. Addendum: 09/16/16 at 0628 by LINDA BOURGEOIS RN Pt had episode of urinary incontinence.
--- NOTE | 2016-09-16 07:20 | NUR ---
END OF SHIFT Pt had eventful night with episodes of agitation, agressiveness, anxiety, confusion and restlessness. Pt was able to be easily redirected and assisted safely back to bed. Pt also pulled out his IV d/t confusion but was reoriented to person, place and time. Pt received several PRN medications of Seroquel, Vistaril and pt also received additional one time order for Ativan 2 mg x1. He slept a total of 3hrs, Intake:500mL Void:x2 BM:0 CIWA: 9 at 0400. Pt remains safe with bed locked in lowest position, side rails up x2, BHT at bedside and call light within reach. Endorsed to oncoming nurse.
--- NOTE | 2016-09-16 07:30 | NUR ---
Start of shift note; Received report from night nurse. Patient is a 61 y/o male admitted on 09/11/16 for ETOH dependence. Patient reported history of depression, hypertension, bipolar disorder, cirrhosis and A-Fib. Patient noted to be allergic to PCN and currently on a 2 GM NA diet. Patient was placed on a 5 day Ativan taper. Patient remained on 1:1 supervision for safety d/t fall risk. Patient had episodes of hallucinations last night per night nurse and received PRN Seroquel, Vistaril and one Time order of Ativan 2mg, all medications noted to be effective. SCD's at bedside to prevent DVT. Patient had intermittent sleep last night. All safety measures secured. Will closely monitor patient.
[2016-09-16 08:00] VITALS: BP 99/70
[2016-09-16 08:11] LABS: BASOPHILS # (AUTO) 0.1 K/uL (0.0-0.2); EOSINOPHILS # (AUTO) 0.8 K/uL (0.0-0.7); EOSINOPHILS % (AUTO) 8.5 % (0.0-7.0); HEMATOCRIT 43.7 % (40.0-50.0); HEMOGLOBIN 14.4 g/dL (14.0-18.0); LYMPHOCYTES # (AUTO) 2.3 K/uL (0.8-4.8); LYMPHOCYTES % (AUTO) 23.7 % (20.5-51.5); MEAN CORPUSCULAR HEMOGLOBIN 32.6 uug (27.0-31.0); MEAN CORPUSCULAR HGB CONC 33 g/dL (32.0-37.0); MEAN CORPUSCULAR VOLUME 98.8 fL (82.0-92.0); MONOCYTES # (AUTO) 1.2 K/uL (0.1-1.30); MONOCYTES % (AUTO) 11.8 % (0.0-11.0); NEUTROPHILS # (AUTO) 5.5 K/uL (1.8-8.9); PLATELET COUNT (AUTO) 160 K/uL (150-450); RED BLOOD CELL COUNT(AUTO) 4.43 MIL/uL (4.70-6.10); RED CELL DISTRIBUTION WIDTH 15.4 % (11.5-14.5); WHITE BLOOD COUNT (AUTO) 9.9 K/uL (4.0-11.2)
[2016-09-16 08:34] LABS: CALCIUM 8.5 mg/dL (8.5-10.1); MAGNESIUM 1.9 mg/dL (1.8-2.4); PHOSPHOROUS 3.4 mg/dL (2.5-4.9)
[2016-09-16 08:42] LABS: CREATININE 1.5 mg/dL (0.6-1.3)
[2016-09-16] MEDS: METOPROLOL TARTRATE 50 MG TABLET PO SCH ×2 (09:00→17:26)
[2016-09-16] MEDS ORDERED: LORAZEPAM 1 MG TABLET PO SCH (09:00)
[2016-09-16] MEDS: LAMOTRIGINE 200 MG TABLET PO SCH (09:39)
[2016-09-16] MEDS: DOCUSATE SODIUM 250 MG CAPSULE PO SCH (09:39)
[2016-09-16] MEDS: FOLIC ACID 1 MG TABLET PO SCH (09:39)
[2016-09-16] MEDS: THIAMINE HCL 100 MG TABLET PO SCH (09:40)
[2016-09-16] MEDS: LACTULOSE 20 G/30 ML LIQUID UDC PO SCH ×4 (09:40→21:10)
[2016-09-16] MEDS: MULTIVITAMINS,THERAPEUTIC TABLET PO SCH (09:40)
[2016-09-16] MEDS: GABAPENTIN 300 MG CAPSULE PO SCH (09:40)
--- NOTE | 2016-09-16 09:54 | NUR ---
Medication held; Patient's BP is 99/70 and HR of 84. Medication Lopressor held d/t systolic BP < 100 , per protocol. Patient remained on 1:1 supervision for safety. Will closely monitor patient.
--- NOTE | 2016-09-16 10:00 | NUR ---
MD communication; Report given to MD. MD made aware of patient's current condition and current LAB results. Will continue to monitor patient.
[2016-09-16 12:00] VITALS: BP 114/84
[2016-09-16] MEDS ORDERED: IV NS 1000 ML 1,000 ML IV ONE (12:45)
--- NOTE | 2016-09-16 14:00 | NUR ---
New order; ordered IV Sodium Chloride 0.9% 1000ml once , bolus for hydration. Educated patient regarding the importance of compliance to treatment, verbalized understanding. IV inserted on patient's left hand, patient tolerated procedure well. Patient remained under 1:1 supervision. Safety measures secured. Will closely monitor patient. Addendum: 09/16/16 at 1559 by JONATHAN MILLER LVN Left hand IV 22G.
[2016-09-16 16:00] VITALS: BP 117/84
[2016-09-16] MEDS ORDERED: QUETIAPINE FUMARATE 25 MG TABLET PO PRN (16:00)
[2016-09-16] MEDS: RIVAROXABAN 10 MG TABLET PO SCH (17:26)
--- NOTE | 2016-09-16 18:09 | NUR ---
End of shift note; Patient is a 61 y/o male admitted on 09/11/16 for ETOH dependence. Patient reported history of depression, hypertension, bipolar disorder, cirrhosis and A-Fib. Patient noted to be allergic to PCN and currently on a 2 GM NA diet. Patient was placed on a 5 day Ativan taper, no adverse reactions noted. Patient remained on 1:1 supervision for safety d/t fall risk. SCD's at bedside to prevent DVT being used while patient is in bed. Patient completed IV Sodium Chloride 0.9% 1000ml bolus, IV site on left hand with 22G, site is intact, no s/s of infiltration. Patient is currently resting with eyes closed, respirations even and unlabored. Medications were effective in reducing withdrawal symptoms. Patient remained compliant with treatment plan. Met all needs.
--- NOTE | 2016-09-16 19:30 | NUR ---
START OF SHIFT NOTE : Patient is a 61 y/o male admitted on 09/11/16 for ETOH dependence. Patient reported history of depression, hypertension, bipolar disorder, cirrhosis and A-Fib. Patient noted to be allergic to PCN and currently on a 2 GM NA diet. Patient was placed on a 5 day Ativan taper on 09/12/2016 . Patient remained on 1:1 supervision for safety d/t fall risk. SCD's at bedside to prevent DVT being used while patient is in the bed, he has IV site on left hand with 22G, site is intact, no s/s of infiltration. Patient is currently resting with eyes closed, respirations even and unlabored. Medications were effective in reducing withdrawal symptoms. Last CIWA=5 at 16:00 . Patient remained compliant with treatment plan. Safety measures in place : bed on lowest position with side rails x2 up for safety, call light within reach. Will continue to monitor closely and offer help.
[2016-09-16 20:00] VITALS: BP 119/74
[2016-09-16] MEDS: ATORVASTATIN 20 MG TABLET PO SCH (21:11)
[2016-09-16] MEDS: CHOLECALCIFEROL 1,000 UNIT TABLET PO SCH (21:11)
[2016-09-16] MEDS: RIFAXIMIN 550 MG TABLET PO SCH (21:11)
[2016-09-17 04:00] VITALS: BP 131/91
--- NOTE | 2016-09-17 06:40 | NUR ---
END OF SHIFT NOTE : Patient is a 61 y/o male admitted on 09/11/16 for ETOH dependence. Patient reported history of depression, hypertension, bipolar disorder, cirrhosis and A-Fib. Patient noted to be allergic to PCN and currently on a 2 GM NA diet. Patient was placed on a 5 day Ativan taper on 09/12/2016 , no adverse reactions noted. Patient remained on 1:1 supervision for safety d/t fall risk. SCD's at bedside to prevent DVT being used while patient is in bed. Pt remains compliant with the treatment plan. No PRNs were given during my shift. V/S remain WNL. RR=16, even and unlabored, lungs clear upon auscultation, abdomen soft and non- distended. Pt denies nausea, vomiting and diarrhea. LAST CIWA= 4 at 0400 , MYVYOS=5513 ml, voided x 3, BM=x3, slept 6 hours. Safety measures in place : bed on lowest position with side rails x2 up for safety, call light within reach. Will continue to monitor closely and offer help.
--- NOTE | 2016-09-17 07:05 | NUR ---
Start Of Shift Patient is a 61 year old male admitted on 09/11/16 for ETOH dependence. Pt is full code 2 gram sodium diet, on fall and seizure precautions reports allergy to PNC. Patient reported PMH of depression, hypertension, bipolar disorder, cirrhosis and A-Fib. Patient was placed on a 5 day Ativan taper which he has completed, and tolerated well. Patient remained on 1:1 supervision for safety d/t fall risk. SCD's at bedside to prevent DVT being used while patient is in bed. No PRNs were requested or given during shift commander. Pt has a saline lock located on his left hand 22G IV patents, flushes easily with no s/s of infiltration currently in not running any fluids. Pts last CIWA was a 4 taken at 0400 Pt slept a total of 6 hours last night. All safety measures in place, call light within reach, bed locked in lowest position, will continue to monitor and provide support.
[2016-09-17 08:00] VITALS: BP 100/59
[2016-09-17 08:06] LABS: BASOPHILS # (AUTO) 0.1 K/uL (0.0-0.2); EOSINOPHILS # (AUTO) 0.8 K/uL (0.0-0.7); EOSINOPHILS % (AUTO) 9.8 % (0.0-7.0); HEMATOCRIT 41.5 % (40.0-50.0); HEMOGLOBIN 13.6 g/dL (14.0-18.0); LYMPHOCYTES # (AUTO) 1.7 K/uL (0.8-4.8); LYMPHOCYTES % (AUTO) 20.8 % (20.5-51.5); MEAN CORPUSCULAR HEMOGLOBIN 32.4 uug (27.0-31.0); MEAN CORPUSCULAR HGB CONC 33 g/dL (32.0-37.0); MEAN CORPUSCULAR VOLUME 98.5 fL (82.0-92.0); MONOCYTES # (AUTO) 0.9 K/uL (0.1-1.30); MONOCYTES % (AUTO) 10.2 % (0.0-11.0); NEUTROPHILS # (AUTO) 4.9 K/uL (1.8-8.9); NEUTROPHILS % (AUTO) 58.2 % (38.5-71.5); PLATELET COUNT (AUTO) 164 K/uL (150-450); RED BLOOD CELL COUNT(AUTO) 4.22 MIL/uL (4.70-6.10); WHITE BLOOD COUNT (AUTO) 8.4 K/uL (4.0-11.2)
[2016-09-17 08:31] LABS: ALBUMIN 2.4 g/dL (3.4-5.0); BILIRUBIN,DIRECT 0.2 mg/dL (0.0-0.2); BILIRUBIN,TOTAL 0.6 mg/dL (0.2-1.0); CREATININE 1.2 mg/dL (0.6-1.3); MAGNESIUM 1.8 mg/dL (1.8-2.4); POTASSIUM 4.3 mmol/L (3.5-5.1); TOTAL PROTEIN, SERUM 5.4 g/dL (6.4-8.2)
[2016-09-17] MEDS: RIFAXIMIN 550 MG TABLET PO SCH ×2 (08:59→20:58)
[2016-09-17] MEDS: DOCUSATE SODIUM 250 MG CAPSULE PO SCH (08:59)
[2016-09-17] MEDS: METOPROLOL TARTRATE 50 MG TABLET PO SCH ×2 (09:00→17:00)
[2016-09-17] MEDS: LAMOTRIGINE 200 MG TABLET PO SCH (09:05)
[2016-09-17] MEDS: FOLIC ACID 1 MG TABLET PO SCH (09:05)
[2016-09-17] MEDS: MULTIVITAMINS,THERAPEUTIC TABLET PO SCH (09:05)
[2016-09-17] MEDS: THIAMINE HCL 100 MG TABLET PO SCH (09:05)
[2016-09-17] MEDS: LACTULOSE 20 G/30 ML LIQUID UDC PO SCH ×4 (09:06→20:58)
[2016-09-17 12:00] VITALS: BP 103/63
[2016-09-17] MEDS ORDERED: NEUTRA PHOS PACKET PO ONE (14:00)
[2016-09-17 16:00] VITALS: BP 100/63
[2016-09-17] MEDS: RIVAROXABAN 10 MG TABLET PO SCH (18:11)
--- NOTE | 2016-09-17 19:18 | NUR ---
End Of Shift Patient is a 61 year old male admitted on 09/11/16 for ETOH dependence. Pt is full code 2 gram sodium diet, on fall and seizure precautions reports allergy to PNC. Patient reported PMH of depression, hypertension, bipolar disorder, cirrhosis and A-Fib. Patient was placed on a 5 day Ativan taper which he has completed, and tolerated well. Patient remained on 1:1 supervision for safety d/t fall risk. SCD's at bedside to prevent DVT being used while patient is in bed. No PRNs were requested or given during day shift. Pts saline lock has been discontinued per MD order. Pt to be discharged home tomorrow. Pts last CIWA was a 1 taken at 1600. Pt received all of his scheduled medications, Metoprolol was held both times due to low BP, MD aware. Pt did not participate in any groups or activities. Pt stated that the medications are working well at controlling the withdrawal symptoms, evidenced by low assessment scores during the day ranging from 3-1. Pt ate all of his meals. Pt remains compliant with the treatment plan. Pts vital signs within normal limits, A/Ox4, denies chest pain. Respirations even unlabored, lungs clear upon auscultation abdomen soft and non- distended. Pt denies nausea, vomiting and diarrhea. Pt total fluid intake was 796ml with 3 voids and 1 stool. Safety measures in place, call light within reach. All pertinent information discussed with restaurant shift supervisor, endorsement given to restaurant shift supervisor nurse.
--- NOTE | 2016-09-17 19:30 | NUR ---
START OF SHIFT NOTE : Patient is a 61 y/o male admitted on 09/11/16 for ETOH dependence. Patient reported history of depression, hypertension, bipolar disorder, cirrhosis and A-Fib. Patient noted to be allergic to PCN and currently on a 2 GM NA diet. Patient was placed on a 5 day Ativan taper on 09/12/2016 . Patient remained on 1:1 supervision for safety d/t fall risk. SCD's at bedside to prevent DVT being used while patient is in the bed. Patient is currently resting with eyes closed, respirations even and unlabored. Medications were effective in reducing withdrawal symptoms. Last CIWA=4 at 16:00 . Patient remained compliant with treatment plan. Safety measures in place : bed on lowest position with side rails x2 up for safety, call light within reach. Will continue to monitor closely and offer help.
[2016-09-17 20:00] VITALS: BP 119/69
[2016-09-17] MEDS: CHOLECALCIFEROL 1,000 UNIT TABLET PO SCH (20:58)
[2016-09-17] MEDS: ATORVASTATIN 20 MG TABLET PO SCH (20:58)
--- NOTE | 2016-09-18 06:46 | NUR ---
END OF SHIFT NOTE : Patient is a 61 y/o male admitted on 09/11/16 for ETOH dependence. Patient reported history of depression, hypertension, bipolar disorder, cirrhosis and A-Fib. Patient noted to be allergic to PCN and currently on a 2 GM NA diet. Pt remains compliant with the treatment plan. Pt denies nausea, vomiting. No PRNs were given during my shift. V/S remain WNL. RR=16, even and unlabored, lungs clear upon auscultation, abdomen soft and non- distended. Pt denies nausea, vomiting and diarrhea. LAST CIWA= 2 at 0400 , INTAKE= 651 ml, voided x 2, slept 7 hours. UDS D/C sent to the lab in A.M. Safety measures in place : bed on lowest position with side rails x2 up for safety, call light within reach. Will continue to monitor closely and offer help.
[2016-09-18 07:17] LABS: *AMPHETAMINE, URINE NEGATIVE (NEGATIVE); *BARBITURATE, URINE NEGATIVE (NEGATIVE); *CANNABINOID, URINE NEGATIVE (NEGATIVE); *COCCAINE, URINE NEGATIVE (NEGATIVE); *OPIATE, URINE NEGATIVE (NEGATIVE); *PHENCYCLIDINE SCREEN,URINE NEGATIVE (NEGATIVE)
--- NOTE | 2016-09-18 07:25 | NUR ---
Start of shift note SBAR report rcv'd. Pt was admitted for ETOH dependence. Pt has a PMH of depression, hypertension, bipolar disorder, cirrhosis and A-Fib. Pt is allergic to PCN and currently on a 2 GM NA diet, and a full code. Pt has completed a 5 day ativan taper without any ASE. Pt is scheduled to discharge home today with the assistance of his sister.Will continue to monitor pt. All needs addressed at this time. Pt is currently resting in his bed watching tv, bed is locked, in low position, call light within reach, side rails up x2. Will continue to monitor pt.
[2016-09-18 08:00] VITALS: BP 129/94
[2016-09-18 09:06] VITALS: BP 129/94
[2016-09-18] MEDS: RIFAXIMIN 550 MG TABLET PO SCH (09:06)
[2016-09-18] MEDS: LAMOTRIGINE 200 MG TABLET PO SCH (09:06)
[2016-09-18] MEDS: METOPROLOL TARTRATE 50 MG TABLET PO SCH (09:06)
[2016-09-18] MEDS: DOCUSATE SODIUM 250 MG CAPSULE PO SCH (09:06)
[2016-09-18] MEDS: LACTULOSE 20 G/30 ML LIQUID UDC PO SCH (09:06)
[2016-09-18] MEDS: FOLIC ACID 1 MG TABLET PO SCH (09:07)
[2016-09-18] MEDS: MULTIVITAMINS,THERAPEUTIC TABLET PO SCH (09:07)
[2016-09-18] MEDS: THIAMINE HCL 100 MG TABLET PO SCH (09:07)
[2016-09-18] MEDS ORDERED: RIFA550T PO (09:35)
[2016-09-18] MEDS ORDERED: Metoprolol Tartrate PO (09:35)
[2016-09-18] MEDS ORDERED: LACT10SO7 PO (09:35)
--- NOTE | 2016-09-18 10:40 | NUR ---
Discharge note Pt was admitted for ETOH dependence. Pt has a CIWA of 2. Pt VS are WNL. Pt LBM was 09/18/16. Pt denies any SI/HI. Pt states that he feels ready for discharge. Pt verbalized his understanding of the discharge instructions, and states that he will call his doctor tomorrow to schedule his follow up apt. Pt discharge instructions, prescriptions, and all belongings returned to pt. Pt ID band removed. Pt ambulated off of unit with POLYMER ENGINEER, left facility via [facility] for home to be cared for by his sister.
== END 2016-09-18 10:40 | disposition home or self-care (01) | DRG 895 ==
LOC: SRC 11:20
PROVIDERS: ADMIT Internal Medicine; ATTEND Internal Medicine
PROC: HZ2ZZZZ Detoxification Services for Substance Abuse Treatment (ICD-10-PCS; principal; 2016-09-11)
PROC: HZ41ZZZ Group Counseling for Substance Abuse Treatment, Behavioral (ICD-10-PCS; 2016-09-12)
DX: F10.230 Alcohol dependence with withdrawal, uncomplicated (principal); K76.6 Portal hypertension; D68.59 Other primary thrombophilia; N17.9 Acute kidney failure, unspecified; K70.31 Alcoholic cirrhosis of liver with ascites; Y90.9 Presence of alcohol in blood, level not specified; E83.42 Hypomagnesemia; Z79.899 Other long term (current) drug therapy; Z79.02 Long term (current) use of antithrombotics/antiplatelets; Z86.73 Personal history of transient ischemic attack (TIA), and cerebral infarction without residual deficits; Z90.81 Acquired absence of spleen; I48.0 Paroxysmal atrial fibrillation; Z79.01 Long term (current) use of anticoagulants; I10 Essential (primary) hypertension; E86.0 Dehydration; E55.9 Vitamin D deficiency, unspecified; J45.20 Mild intermittent asthma, uncomplicated; F31.9 Bipolar disorder, unspecified; R73.9 Hyperglycemia, unspecified; K70.40 Alcoholic hepatic failure without coma
CPT/HCPCS: 36415; 70030-TC; 76700; 80307; 82306; 82746; 83690; 83735; 84100; 84443; 85025; 86580; 86592; 86705; 86803; 87340; 87806; 90732; 93005; 93307; 97001; A4663; G6040-TC; J3411; J7030; J7040; Q0163

== ENCOUNTER 2016-09-13 17:56 | Outpatient (CLI) | payer BC, OTHER ==
[~2016-09-13 17:56] MED LIST: ALBU8.5H2 INH; ATOR20TA PO; AZEL23SP BNOSTRILS; BETA15CR5 TP; BUDE10.2 INH; CHOL10005 PO; DOXY150T PO; FEXO-25 PO; FLUO30CR11 TP; FURO40TA5 PO; HYDR-3024 PO; LAMO200T PO; METO-306 PO; MONT10TA25 PO; NALT50TA PO; SPIR50TA3 PO; TIOT18CA4 IH; xeralto PO
== END 2016-09-13 23:59 | disposition other institution (70) ==
LOC: RAD 17:56 → CT 23:59
PROVIDERS: ATTEND Internal Medicine
DX: R41.82 Altered mental status, unspecified (principal); Z86.73 Personal history of transient ischemic attack (TIA), and cerebral infarction without residual deficits; Z79.01 Long term (current) use of anticoagulants
CPT/HCPCS: 70450